=== PATIENT | male | born 1985 | race Caucasian/White ===

== ENCOUNTER 2019-06-29 14:23 | Emergency (ER) | payer MEDICARE, SELFPAY ==
[2019-06-29 14:35] VITALS: BP 134/75; PULSE 93; RESP 16; TEMP 36.8; O2SAT 99
--- NOTE | 2019-06-29 15:06 | ED.GENADUL_ITS ---
Discharge Plan Disposition Patient Disposition: HOME Condition: Stable Discharge Details Chief Complaint: Chest Pain Clinical Impression: Palpitation, Chest pressure Primary Care Provider: Nkechi Tolbert ED Provider: Alison Ibanez Home Meds and New Rx's Prescriptions: No Action esomeprazole magnesium [Nexium] 40 MG capsule,delayed release(DR/EC) 40 mg PO BID RF: 0 mercaptopurine 50 MG tablet 100 mg PO DAILY RF: 0 Stelara 90 mg/mL Syringe 90 mg SUBCUT .MONTHLY RF: 0 B-12 Compliance 1,000 mcg/mL Kit 1,000 mcg IM .MONTHLY RF: 0 Discharge Instructions Instructions: Palpitations (ED) Additional Instructions: Drink plenty of fluids. Rest activities as tolerated. Holter monitor for the next 48 hours as discussed. Follow-up promptly with your primary care doctor as discussed. For any alarming symptoms, worsening, increase in symptoms, persistent lightheaded nests, dizziness, feeling of syncope or chest pain have immediate reevaluation in the emergency room. Stand Alone Forms: Work Release Discharge Data Discharge Date/Time-TO BE ENTERED AT DEPARTURE: 06/29/19 18:57 Medical Decision Making <RIC Pham - Last Filed: 06/29/19 16:23> 15:15 This is a nontoxic-appearing 33-year-old male presenting to the emergency department with intermittent symptoms of palpitations, lightheadedness and chest pressure over the last 2 months. Most recent episode was roughly 24 hours ago. He does admit to central chest heaviness at this time. EKG shows sinus rhythm. Vital signs stable. He denies any dyspnea and has no tachycardia here therefore I do not suspect PE at this time. Labs drawn and ordered. 16:20 Patient's labs unremarkable. He remains in normal sinus rhythm on the monitor. Plan is to repeat troponin and discharge if negative. Will attempt to send home with Holter monitor. Case signed out to CLAIRE Ibanez at shift change. <RIC Jasmine - Last Filed: 06/30/19 00:47> Is a 33-year-old patient who presents for several months of palpitations. Please see previous providers note regarding patient's HPI. Patient was signed out pending a second troponin with a care plan in place to discharge the patient if troponin is negative. Patient has a low heart score per the previous provider. Patient has a Holter monitor in place which was put on in the ER this evening. I spoke with the patient who reports he has no persistent symptoms at this time. Reviewed current vital signs which are normal. Patient is requesting discharge home at this time. Pt prefer outpatient management as previously planned. Patient feels very appropriate being discharged home and prefers to follow-up with PCP. Patient second troponin ultimately negative and was discharged per the previous plan in place. HPI <RIC Pham - Last Filed: 06/29/19 16:23> General Date/Time Provider Initiated Documentation: 06/29/19 14:55 . HPI Narrative: Patient is a 33-year-old male with a significant history of Crohn's disease status post colectomy with ileostomy who presents to the emergency department with intermittent episodes of racing heart, facial flushing/tingling, bilateral hand tingling and chest pressure over the last 2 months. Patient states that he called his consultant teacher, Dr. Christianson, today and was instructed to come to the emergency department for evaluation. He denies any symptoms at this time. His last episode was roughly 24 hours ago. He does admit to some aching in his substernal area. No nausea or vomiting. He is a non-smoker. He denies any history of diabetes. No history of heart disease. No history of cancer. Related Data Home Medications Medication Instructions Recorded Confirmed esomeprazole magnesium [Nexium] 40 mg PO BID 08/21/17 06/29/19 mercaptopurine 100 mg PO DAILY 08/21/17 06/29/19 cyanocobalamin (vitamin B-12) 1,000 mcg IM .MONTHLY 06/29/19 06/29/19 [B-12 Compliance] ustekinumab [Stelara] 90 mg SUBCUT .MONTHLY 06/29/19 06/29/19 Allergies Allergy/AdvReac Type Severity Reaction Status Date / Time Penicillins Allergy Mild Hives Unverified 06/29/19 14:38 General Stated Complaint: Chest Pain MITUL: 2 Review of Systems <RIC Pham - Last Filed: 06/29/19 16:23> Constitutional Constitutional: Denies chills, Denies fatigue, Denies fever(s), Denies headache(s), Denies lethargy and Denies night sweats Eyes Eyes: Denies blurry vision, Denies change in vision, Denies decreased night vision, Denies diplopia, Denies eye discharge and Denies dry eyes ENT Ears, Nose, Mouth, and Throat: Denies headache(s) Cardiovascular Cardiovascular: Denies acrocyanosis, Reports chest pain, Denies syncope, Reports rapid heart rate, Denies edema, Denies irregular heart rhythm, Denies claudication, Denies leg edema, Reports lightheadedness, Reports palpitations, Denies dyspnea, Denies dyspnea on exertion, Denies orthopnea and Denies paroxysmal nocturnal dyspnea Respiratory Respiratory: Denies cough, Denies hemoptysis, Denies pain on inspiration, Denies dyspnea, Denies dyspnea on exertion and Denies wheezing Gastrointestinal Gastrointestinal: Denies abdominal pain, Denies diarrhea, Denies nausea and Denies vomiting Musculoskeletal Musculoskeletal: Denies arthralgias Integumentary/Breasts Skin/Breast: Denies rash Neurologic Neurologic: Denies syncope and Denies headache(s) Endocrine Endocrine: Denies fatigue and Reports palpitations Allergic/Immunologic Allergic/Immunologic: Denies wheezing PFSH <RIC Pham - Last Filed: 06/29/19 16:23> Social History Smoking/Tobacco Use Status: Never Drug use: Never Substance use type: does not use Do you feel safe in your relationship?: Yes Exam <RIC Pham - Last Filed: 06/29/19 16:23> Const General: cooperative, healthy appearing and comfortable Orientation: alert, awake and oriented x3 HENMT Head: normal to inspection and normocephalic Ears: hearing grossly normal bilaterally General nose exam: external nose normal Face and sinus: normal facial exam Mouth: oral mucosae normal Teeth and gingiva: dentition normal Throat: posterior oropharynx normal Eyes General: appearance normal, both eyes and all related structures Pupils: PERRL EOM: EOM intact bilaterally Neck Neck: normal visual inspection, full ROM and no lymphadenopathy Chest Chest: normal inspection of the chest and normal palpation of entire chest wall Resp Effort & Inspection: normal respiratory effort and able to speak in complete sentences Auscultation: clear to auscultation bilaterally Cardio Rate: regular rate Rhythm: regular rhythm Pulses: normal peripheral pulses Skin General skin exam: no rashes or lesions noted Neuro General: alert, awake and oriented x3 Cranial Nerves: CN's II-XI intact bilaterally Speech: speech normal Motor: muscle tone normal throughout Sensory Exam: no sensory deficits noted Extrem General: normal to inspection Course <RIC Pham - Last Filed: 06/29/19 16:23> Vital Signs Vital signs: Vital Signs Temperature 36.8 C 06/29/19 14:35 Pulse 93 H 06/29/19 14:35 Respiratory Rate 16 06/29/19 14:35 Blood Pressure 134/75 06/29/19 14:35 Pulse Oximetry 99 06/29/19 14:35 Temperature 36.8 C 06/29/19 14:35 Temperature Source Skin 06/29/19 14:35 Pulse 93 H 06/29/19 14:35 Respiratory Rate 16 06/29/19 14:35 Respiratory Effort Non-Labored 06/29/19 14:35 Blood Pressure 134/75 06/29/19 14:35 Blood Pressure Position Sitting 06/29/19 14:35 Pulse Oximetry 99 06/29/19 14:35 Oxygen Delivery Method Room Air 06/29/19 14:35 Oxygen Flow Rate 0 06/29/19 14:35 Pain Level 0 06/29/19 14:35 Sign Out <RIC Pham - Last Filed: 06/29/19 16:23> Sign Out Data: Sign Out Comment: Nontoxic-appearing 33-year-old male presenting to the emergency department with palpitations and lightheadedness with intermittent chest heaviness over the last 2 months. Low heart score. Initial labs unremarkable. Chest x-ray negative. EKG shows normal sinus rhythm. Repeat troponin pending. If negative can be discharged home. Discussed sending home with Holter monitoring Last updated by Roverto Daniel PA at 06/29/19 16:18
[2019-06-29 15:12] VITALS: RESP 15
[2019-06-29 15:14] LABS: Abs Immature Grans 0.01 k/cumm (0.0-0.09); Absolute Basophil Count 0.03 k/cumm (0.0-0.2); Absolute Eosinophil Count 0.13 k/cumm (0.0-0.7); Absolute Monocyte Count 0.23 k/cumm (0.11-0.7); Absolute Neutrophil Count 3.29 k/cumm (1.2-6.7); Basophils % 0.6; Eosinophils % 2.8; HCT 38.1 % (40.0-50.0); HGB 12.2 g/dL (13.5-17.5); Immature Grans % 0.2; Lymphocytes % 21.3; Mean Corpuscular Volume 87.4 fL (80-95); Mean Platelet Volume 8.8 fL (8.0-11.0); Monocytes % 4.9; Neutrophils % 70.2; Platelet Count 416 x1000/uL (130-400); RBC 4.36 m/cumm (4.50-6.00); RBC Distribution Width 15.3 % (11.8-14.1); White Blood Cell Count 4.69 k/cumm (4.4-10.8)
--- NOTE | 2019-06-29 15:21 | DI.RAD_ITS ---
EXAM: XR CHEST 2V PA LATERAL XR CHEST 2V PA LATERAL CLINICAL HISTORY: Palpitations, lightheadedness Palpitations, lightheadedness TECHNIQUE: 2D digital imaging was performed. COMPARISON: ABD FLAT UPRIGHT PA CHEST from 08/21/2017 FINDINGS: The heart is not enlarged. The lungs are clear and well expanded. No pleural effusion seen. Mediastin al contours appear intact. IMPRESSION: Normal chest
[2019-06-29 15:42] LABS: ALT 32 U/L (16-63); AST 20 U/L (15-37); Albumin 3.8 g/dL (3.4-5.0); Alkaline Phosphatase 58 U/L (46-116); Anion Gap 9.8 mmol/L (3-11); BUN 5 mg/dL (7-18); Bilirubin, Total 0.4 mg/dL (0.2-1.0); CO2 28.2 mmol/L (21.0-32.0); CREATININE 0.78 mg/dL (0.70-1.30); Calcium 9.2 mg/dL (8.5-10.1); Chloride 106 mmol/L (98-107); Glucose 100 mg/dL (74-106); Magnesium 2.1 mg/dL (1.8-2.4); Sodium 144 mmol/L (136-145); Total Protein 7.8 g/dL (6.4-8.2)
[2019-06-29 15:49] LABS: Troponin I < 0.05 ng/Ml (<0.06)
[2019-06-29 16:14] LABS: TSH (W/Ref FT4) 2.08 uIU/mL (0.36-3.74)
[2019-06-29 18:16] LABS: Troponin I < 0.05 ng/Ml (<0.06)
[2019-06-29 18:28] VITALS: BP 118/68; PULSE 77; RESP 16; TEMP 36.8; O2SAT 99
--- NOTE | 2019-06-29 18:30 | ED.GENADUL_ITS ---
Discharge Plan Disposition Patient Disposition: HOME Condition: Stable Discharge Details Chief Complaint: Chest Pain Clinical Impression: Palpitation, Chest pressure Primary Care Provider: Nkechi Tolbert ED Provider: Alison Ibanez Home Meds and New Rx's Prescriptions: No Action esomeprazole magnesium [Nexium] 40 MG capsule,delayed release(DR/EC) 40 mg PO BID RF: 0 mercaptopurine 50 MG tablet 100 mg PO DAILY RF: 0 Stelara 90 mg/mL Syringe 90 mg SUBCUT .MONTHLY RF: 0 B-12 Compliance 1,000 mcg/mL Kit 1,000 mcg IM .MONTHLY RF: 0 Discharge Instructions Instructions: Palpitations (ED) Additional Instructions: Drink plenty of fluids. Rest activities as tolerated. Holter monitor for the next 48 hours as discussed. Follow-up promptly with your primary care doctor as discussed. For any alarming symptoms, worsening, increase in symptoms, persistent lightheaded nests, dizziness, feeling of syncope or chest pain have immediate reevaluation in the emergency room. Stand Alone Forms: Work Release Medical Decision Making Is a 33-year-old patient who was signed out pending a repeat troponin. Please see previous providers note regarding HPI and details of patient's complaints. Patient is 33 years old with a low heart score who does not smoke who presents for 2 months of palpitations associated with flushing. Patient's labs evaluated as well as EKG. Patient is feeling significantly improved at this time. Holter monitor is in place and has plan of keeping in place for the next 48 hours. Patient's vital signs are normal. Patient has no symptoms at this time. Has been drinking without difficulty. Patient reports understanding with plan of care. Work note provided feels uncomfortable reports he is hungry and is requesting discharge home at this time. Patient was offered admission to the hospital if he feels he needs more significant evaluation however he does not feel he needs or requires admission to the hospital at this time but does feel comfortable with outpatient follow-up with his PCP closely. Patient will call his PCP tomorrow. The patient was stable and requested discharge. Prior to discharge, my usual and customary return precautions were reviewed with the prachi ent - this included follow-up instructions and reasons to return to the Emergency Department if conditions worsens, does not improve as expected, or other new concerns arise. HPI General Date/Time Provider Initiated Documentation: 06/29/19 14:55 . Related Data Home Medications Medication Instructions Recorded Confirmed esomeprazole magnesium [Nexium] 40 mg PO BID 08/21/17 06/29/19 mercaptopurine 100 mg PO DAILY 08/21/17 06/29/19 cyanocobalamin (vitamin B-12) 1,000 mcg IM .MONTHLY 06/29/19 06/29/19 [B-12 Compliance] ustekinumab [Stelara] 90 mg SUBCUT .MONTHLY 06/29/19 06/29/19 Allergies Allergy/AdvReac Type Severity Reaction Status Date / Time Penicillins Allergy Mild Hives Unverified 06/29/19 14:38 General Stated Complaint: Chest Pain MITUL: 2 PFSH Social History Smoking/Tobacco Use Status: Never Drug use: Never Substance use type: does not use Do you feel safe in your relationship?: Yes Course Vital Signs Vital signs: Vital Signs Temperature 36.8 C 06/29/19 14:35 Pulse 93 H 06/29/19 14:35 Respiratory Rate 16 06/29/19 14:35 Blood Pressure 134/75 06/29/19 14:35 Pulse Oximetry 99 06/29/19 14:35 Temperature 36.8 C 06/29/19 14:35 Temperature Source Skin 06/29/19 14:35 Pulse 93 H 06/29/19 14:35 Respiratory Rate 15 06/29/19 15:12 Respiratory Effort 06/29/19 15:12 Respiratory Depth Normal 06/29/19 15:12 Respiratory Pattern Normal 06/29/19 15:12 Blood Pressure 134/75 06/29/19 14:35 Blood Pressure Position Sitting 06/29/19 14:35 Pulse Oximetry 99 06/29/19 14:35 Oxygen Delivery Method Room Air 06/29/19 14:35 Oxygen Flow Rate 0 06/29/19 14:35 Pain Level 0 06/29/19 14:35 Lab/Test Results Lab/Test Results: Laboratory Tests Range/Units 06/29/19 06/29/19 06/29/19 15:06 15:06 15:06 WBC (4.4-10.8) k/cumm 4.69 RBC (4.50-6.00) m/cumm 4.36 L Hgb (13.5-17.5) g/dL 12.2 L Hct (40.0-50.0) % 38.1 L MCV (80-95) fL 87.4 MCH (27.0-33.0) pg 28.0 MCHC (32.0-36.0) g/dL 32.0 RDW (11.8-14.1) % 15.3 H Plt Count (130-400) x1000/uL 416 H MPV (8.0-11.0) fL 8.8 Immature Gran % 0.2 Neutrophils % 70.2 Lymphocytes % 21.3 Monocytes % 4.9 Eosinophils % 2.8 Basophils % 0.6 Absolute Neutrophils (1.2-6.7) k/cumm 3.29 Absolute Lymphocytes (1.2-3.4) k/cumm 1.00 L Absolute Monocytes (0.11-0.7) k/cumm 0.23 Absolute Eosinophils (0.0-0.7) k/cumm 0.13 Absolute Basophils (0.0-0.2) k/cumm 0.03 Sodium (136-145) mmol/L 144 Potassium (3.5-5.1) mmol/L 4.0 Chloride (98-107) mmol/L 106 Carbon Dioxide (21.0-32.0) mmol/L 28.2 Anion Gap (3-11) mmol/L 9.8 BUN (7-18) mg/dL 5 L Creatinine (0.70-1.30) mg/dL 0.78 Estimated GFR/1.73 m2 (mL/min/1.73m2) >= 60.00 Glucose (74-106) mg/dL 100 Calcium (8.5-10.1) mg/dL 9.2 Magnesium (1.8-2.4) mg/dL 2.1 Total Bilirubin (0.2-1.0) mg/dL 0.4 AST (15-37) U/L 20 ALT (16-63) U/L 32 Alkaline Phosphatase (46-116) U/L 58 Troponin I (<0.06) ng/Ml < 0.05 Total Protein (6.4-8.2) g/dL 7.8 Albumin (3.4-5.0) g/dL 3.8 TSH (0.36-3.74) uIU/mL 2.08 Range/Units 12/19/19 12/19/19 15:10 17:15 WBC (4.4-10.8) k/cumm RBC (4.50-6.00) m/cumm Hgb (13.5-17.5) g/dL Hct (40.0-50.0) % MCV (80-95) fL MCH (27.0-33.0) pg MCHC (32.0-36.0) g/dL RDW (11.8-14.1) % Plt Count (130-400) x1000/uL MPV (8.0-11.0) fL Immature Gran % Neutrophils % Lymphocytes % Monocytes % Eosinophils % Basophils % Absolute Neutrophils (1.2-6.7) k/cumm Absolute Lymphocytes (1.2-3.4) k/cumm Absolute Monocytes (0.11-0.7) k/cumm Absolute Eosinophils (0.0-0.7) k/cumm Absolute Basophils (0.0-0.2) k/cumm Sodium (136-145) mmol/L Potassium (3.5-5.1) mmol/L Chloride (98-107) mmol/L Carbon Dioxide (21.0-32.0) mmol/L Anion Gap (3-11) mmol/L BUN (7-18) mg/dL Creatinine (0.70-1.30) mg/dL Estimated GFR/1.73 m2 (mL/min/1.73m2) Glucose (74-106) mg/dL Calcium (8.5-10.1) mg/dL Magnesium (1.8-2.4) mg/dL Total Bilirubin (0.2-1.0) mg/dL AST (15-37) U/L ALT (16-63) U/L Alkaline Phosphatase (46-116) U/L Troponin I (<0.06) ng/Ml Cancelled < 0.05 Total Protein (6.4-8.2) g/dL Albumin (3.4-5.0) g/dL TSH (0.36-3.74) uIU/mL Sign Out Sign Out Data: Sign Out Comment: Nontoxic-appearing 33-year-old male presenting to the emergency department with palpitations and lightheadedness with intermittent chest heaviness over the last 2 months. Low heart score. Initial labs unremarkable. Chest x-ray negative. EKG shows normal sinus rhythm. Repeat troponin pending. If negative can be discharged home. Discussed sending home with Holter monitoring Last updated by Roverto Daniel PA at 06/29/19 16:18
== END 2019-06-29 18:57 | disposition home or self-care (01) ==
PROVIDERS: Physician Assistant; Emergency Provider Physician Assistant; PCP Internal Medicine
DX: R00.2 Palpitations (principal); R07.89 Other chest pain; R42 Dizziness and giddiness
CPT/HCPCS: 36415; 80053; 93005; 99285; 71046; 83735; 84443; 84484; 85025; 93010; 93225; 99284

== ENCOUNTER 2019-07-02 12:19 | Outpatient (CLI) | payer MEDICARE, SELFPAY ==
--- NOTE | 2019-07-06 08:51 | W.HOLTRPT ---
Date of service: 07/06/19 Time of Service: 08:51 Holter Monitor Report Holter Monitor Note: The patient was monitored for 2 days . Rhythm throughout was sinus. Average heart rate was 87/minute (range 56 to 152) There were no dysrhythmias recorded
== END 2019-07-02 12:39 ==
PROVIDERS: PCP Internal Medicine; Visit Provider Physician Assistant
DX: R00.2 Palpitations (principal); R07.89 Other chest pain; R42 Dizziness and giddiness
CPT/HCPCS: 93226

== ENCOUNTER 2019-07-06 08:51 | Outpatient (CLI) | payer MEDICARE, SELFPAY | END 2019-07-06 09:11 | PROVIDERS: PCP Internal Medicine; Referring Provider Internal Medicine; Visit Provider Internal Medicine Cardiovascular Disease | DX: R00.2 Palpitations (principal); R07.89 Other chest pain; R42 Dizziness and giddiness | CPT/HCPCS: 93227 ==

== ENCOUNTER 2021-06-09 03:16 | Outpatient (CLI) | payer MEDICARE, SELFPAY ==
[2021-06-09 17:12] LABS: Abs Immature Grans 0.01 10^3/uL (0.0-0.06); Absolute Basophil Count 0.03 10^3/uL (0.0-0.2); Absolute Lymphocyte Count 1.15 10^3/uL (1.2-3.4); Absolute Neutrophil Count 2.86 10^3/uL (1.2-6.7); Basophils % 0.7; Eosinophils % 4.4; HCT 33.5 % (40.0-50.0); HGB 9.9 g/dL (13.5-17.5); Immature Grans % 0.2; Lymphocytes % 25.3; MCH 23.2 pg (27.0-33.0); MCHC 29.6 % (32.0-36.0); MCV 78.5 fL (80-95); MPV 8.8 fL (8.0-11.0); Monocytes % 6.6; Neutrophils % 62.8; Nucleated RBC 0 %; Platelet Count 431 10^3/uL (130-400); RBC 4.27 10^6/uL (4.36-5.78); RDW 17.1 % (11.8-14.1); RDW-SD 48.5 fL; WBC 4.55 10^3/uL (4.4-10.8)
[2021-06-09 18:02] LABS: ALT 37 U/L (16-63); AST 16 U/L (15-37); Albumin 3.8 g/dL (3.4-5.0); Alkaline Phosphatase 59 U/L (46-116); BUN 8 mg/dL (7-18); Bilirubin, Total 0.4 mg/dL (0.2-1.0); C-Reactive Protein 0.18 mg/dL (0.0-0.3); CREATININE 0.9 mg/dL (0.70-1.30); Calcium 8.9 mg/dL (8.5-10.1); Chloride 106 mmol/L (98-107); Glucose 90 mg/dL (74-106); Potassium 4.4 mmol/L (3.5-5.1); Sodium 141 mmol/L (136-145); Total Protein 7.7 g/dL (6.4-8.2)
== END 2021-06-09 03:17 | disposition home or self-care (01) ==
LOC: LBO 03:17
PROVIDERS: PCP Internal Medicine; Visit Provider Internal Medicine Gastroenterology
DX: K50.814 Crohn's disease of both small and large intestine with abscess (principal)
CPT/HCPCS: 36415; 80053; 85025; 86140

== ENCOUNTER 2021-07-31 02:07 | Outpatient (CLI) | payer MEDICARE, OTHER, SELFPAY ==
[2021-07-31 12:31] LABS: Abs Immature Grans 0.01 10^3/uL (0.0-0.06); Absolute Basophil Count 0.03 10^3/uL (0.0-0.2); Absolute Lymphocyte Count 1.08 10^3/uL (1.2-3.4); Absolute Monocyte Count 0.32 10^3/uL (0.1-0.8); Basophils % 0.6; Eosinophils % 2.1; HCT 35.5 % (40.0-50.0); HGB 10.1 g/dL (13.5-17.5); Immature Grans % 0.2; Lymphocytes % 22.8; MCH 22.5 pg (27.0-33.0); MCHC 28.5 % (32.0-36.0); MCV 79.1 fL (80-95); MPV 8.5 fL (8.0-11.0); Monocytes % 6.8; Neutrophils % 67.5; Nucleated RBC 0 %; Platelet Count 463 10^3/uL (130-400); RBC 4.49 10^6/uL (4.36-5.78); RDW-SD 47.8 fL; WBC 4.74 10^3/uL (4.4-10.8)
[2021-07-31 13:17] LABS: Iron 18 ug/dL (65-175); Total Iron Binding Capacity 434 ug/dL (250-450); Transferrin Sat 4 % (20-55)
[2021-07-31 13:45] LABS: Folate 9.1 ng/mL (8.6-20.0); Vitamin B12 351 pg/mL (193-986)
== END 2021-07-31 02:08 | disposition home or self-care (01) ==
LOC: LBO 02:07
PROVIDERS: PCP Internal Medicine; Visit Provider Internal Medicine Gastroenterology
DX: D50.0 Iron deficiency anemia secondary to blood loss (chronic) (principal); K52.89 Other specified noninfective gastroenteritis and colitis; K50.80 Crohn's disease of both small and large intestine without complications
CPT/HCPCS: 36415; 82607; 82746; 83540; 83550; 85025

== ENCOUNTER 2022-02-27 09:24 | Emergency (ER) | payer OTHER, SELFPAY ==
[2022-02-27 09:28] VITALS: BP 138/69; PULSE 95; TEMP 36.8; O2SAT 94
--- NOTE | 2022-02-27 10:00 | DI.CT_ITS ---
Exam(s) CT ABDOMEN PELVIS W EXAM: CT ABDOMEN PELVIS W CLINICAL HISTORY: Perianal abscess with history of Crohn's. TECHNIQUE: Imaging Protocol: Axial computed tomography images with coronal and sagittal reformatted images were created and reviewed CONTRAST MATERIAL: Intravenous: Omnipaque 350 Contrast volume:100 ml Oral: no COMPARISON: No exams were available for comparison FINDINGS: ABDOMEN: Lung Bases: Normal where visualized. Liver: Normal density. No measurable mass. Gallbladder and biliary tract: Single large gallstone. No gallbladder wall thickening. No biliary d ilation. Pancreas: Normal density, no abnormal calcifications or inflammatory process. Spleen: Normal. Kidneys: Normal size, contour and axis. No radiodense stones or obstructive uropathy. No masses seen. Left renal cyst. Adrenal glands: No masses seen. Abdominal Aorta: Abdominal portion non-dilated. PELVIS: Bladder: No gross wall thickening. No calculi.No focal mass. Bowel: Status post colectomy right-sided ileostomy. Small segment of rectosigmoid is in place and vitaliy ears unremarkable. The majority of the small bowel is decompressed. There is a focal area of dilatat ion just proximal to the ostomy. Bowel proximal to this level decompressed. Mild dilatation left lo wer quadrant bowel. No wall thickening or stranding in the surrounding fat.. . Peritoneal cavity: No ascites, collection or mesenteric inflammatory response. Bones: Within normal limits for age. Reproductive organs: Within normal limits. Lymph nodes: Unremarkable. Soft tissues: There is thickening of the right gluteal fold and minimal edema in the adjacent fat. N o drainable abscess or fluid collection. Impression: Right gluteal skin thickening without visible abscess. Colectomy and right lower quadrant ileostomy. No evidence of active inflammation. Single large gallstone. No evidence of cholecystitis. Results of this exam have been verbally communicated with the emergency department provider. RADIATION DOSE DELIVERED: 1,349.94mGy.cm Total DLP DATA REPOSITORY: All CT scans at this facility are submitted to the National Radiology Data Registry (NRDR) Dose Index Registry (DIR) with the [employer] ([employer]). RADIATION OPTIMIZATION: All CT scans at this facility use at least one of these dose optimization te chniques: automated exposure control; mA and/or kV adjustment per patient size (includes targeted exa ms where dose is matched to clinical indication); or iterative reconstruction.
--- NOTE | 2022-02-27 10:21 | ED.GENADUL_ITS ---
Discharge Plan Disposition Patient Disposition: HOME Discharge Details Clinical Impression: Cellulitis of buttock Primary Care Provider: Nkechi Tolbert ED Provider: John Watson Home Meds and New Rx's Prescriptions: New ciprofloxacin HCl 500 mg tablet 500 mg PO Q12H 7 Days Qty: 14 0RF metronidazole 500 mg tablet 500 mg PO TID 7 Days Qty: 21 0RF Continued esomeprazole magnesium [Nexium] 40 MG capsule,delayed release(DR/EC) 40 mg PO BID mercaptopurine 50 MG tablet 100 mg PO DAILY Stelara 90 mg/mL Syringe 90 mg SUBCUT .MONTHLY B-12 Compliance 1,000 mcg/mL Kit 1,000 mcg IM .MONTHLY Discharge Instructions Instructions: Cellulitis (ED) Additional Instructions: Continue to take your antibiotics as prescribed along with 2 mg daily medication s. If you have any significant new or worsening symptoms feel free to return to the emergency department for reassessment otherwise please follow-up with [facility] gastroenterology next week for recheck of your symptoms and possible further treatment as needed. Referrals: [facility] [Outside] - 1 week Discharge Data Discharge Date/Time-TO BE ENTERED AT DEPARTURE: 02/27/22 14:01 Medical Decision Making Patient presenting to the emergency department for chief complaint of buttock abscess. Patient has significant history of Crohn's with colectomy. Patient reports previous history of buttock abscesses that required significant surgery and ended up in colectomy. Patient states that this started as a small area of irritation to the right buttock near the anal opening and has progressively worsened over the past 2 weeks. Patient denies any drainage. Patient denies any systemic symptoms. Physical exam shows significant erythema swelling induration and tenderness surrounding the right aspect of the rectal opening and the surrounding buttock tissue. No specific head of the abscess was noted. Abdominal exam is otherwise unremarkable and colostomy appears normal and overall appearance with patient reporting typical drainage. Patient does state that every once a while he does pass some slight mucus through the rectal opening but does not have any standard bowel movement. We will plan on checking labs and CT imaging due to high risk of fistulization given history. Patient denies any need for pain medication at time pending results. Reviewed CBC and patient has chronic anemia without significant change, unremarkable CMP. CT scan shows inflammatory skin changes on the right buttock but no obvious drainable abscess. Consulted with gastroenterology at [facility]. After discussion with specialist plan to start patient on Cipro Flagyl with close follow-up at [facility] for possible need of IR or colorectal surgery given patient's history. Patient states clear understanding of follow-up. Also did discuss with patient return and follow-up precautions for any new or significant worsening of symptoms. After discussion of diagnosis and plan of care patient has no further needs, questions, or concerns and states clear understanding to return to the emergency department for any worsening symptoms. This documentation was generated using [employer] system, please disregard any oddities of phrase or misspellings. Medical Records Medical records reviewed: Yes I reviewed the patient's medical records. Imaging Data Radiologic Study: Attestation: I personally reviewed and interpreted this imaging study as follows: Imaging: CT Scan Radiologist's impression: FINDINGS: ABDOMEN: Lung Bases: Normal where visualized. Liver: Normal density. No measurable mass. Gallbladder and biliary tract: Single large gallstone. No gallbladder wall thickening. No biliary dilation. Pancreas: Normal density, no abnormal calcifications or inflammatory process. Spleen: Normal. Kidneys: Normal size, contour and axis. No radiodense stones or obstructive uropathy. No masses seen. Left renal cyst. Adrenal glands: No masses seen. Abdominal Aorta: Abdominal portion non-dilated. PELVIS: Bladder: No gross wall thickening. No calculi.No focal mass. Bowel: Status post colectomy right-sided ileostomy. Small segment of rectosigmoid is in place and appears unremarkable. The majority of the small bowel is decompressed. There is a focal area of dilatation just proximal to the ostomy. Bowel proximal to this level decompressed. Mild dilatation left lower quadrant bowel. No wall thickening or stranding in the surrounding fat.. . Peritoneal cavity: No ascites, collection or mesenteric inflammatory response. Bones: Within normal limits for age. Reproductive organs: Within normal limits. Lymph nodes: Unremarkable. Soft tissues: There is thickening of the right gluteal fold and minimal edema in the adjacent fat. No drainable abscess or fluid collection. Impression: Right gluteal skin thickening without visible abscess. Colectomy and right lower quadrant ileostomy. No evidence of active inflammation. Single large gallstone. No evidence of cholecystitis. Results of this exam have been verbally communicated with the emergency depar tment provider. Lab Data Lab results reviewed: Yes I reviewed the patient's lab results. HPI General Mode of arrival: ambulatory . Date/Time Provider Initiated Documentation: 02/27/22 09:26 . Limitations to Documentation: no limitations . Information obtained by: patient . History of Present Illness 36 year old M presents to the emergency department with the chief complaint of Buttock abscess, described as mild, with intensity rated at 4. Quality is described as aching, and is localized to the buttocks. Patient reports no radiation. Patient started experiencing this week(s) (2) and it has been constant. No relieving factors improve symptom(s), No exacerbating factors reported . Patient notes no other symptoms.. Patient did receive the following treatments prior to arrival, none Related Data Home Medications Medication Instructions Recorded Confirmed esomeprazole magnesium 40 mg 40 mg PO BID 08/21/17 02/27/22 capsule,delayed release (Nexium) mercaptopurine 50 mg tablet 100 mg PO DAILY 08/21/17 02/27/22 cyanocobalamin (vitamin B-12) 1,000 mcg IM .MONTHLY 06/29/19 06/29/19 1,000 mcg/mL injection kit (B-12 Compliance) ustekinumab 90 mg/mL subcutaneous 90 mg subcut .MONTHLY 06/29/19 02/27/22 syringe (Stelara) ciprofloxacin HCl 500 mg tablet 500 mg PO Q12H 7 days #14 tabs 02/27/22 metronidazole 500 mg tablet 500 mg PO TID 7 days #21 tabs 02/27/22 Previous Rx's Medication Instructions Recorded ciprofloxacin HCl 500 mg tablet 500 mg PO Q12H 7 days #14 tabs 02/27/22 metronidazole 500 mg tablet 500 mg PO TID 7 days #21 tabs 02/27/22 Allergies Allergy/AdvReac Type Severity Reaction Status Date / Time Penicillins Allergy Mild Hives Unverified 02/27/22 09:30 General Stated Complaint: RashLesion MITUL: 3 Review of Systems Narrative: 8 systems reviewed and unremarkable except what is marked below. Gastrointestinal Gastrointestinal: Reports as per HPI, Denies abdominal pain and Denies excessive flatus Integumentary/Breasts Skin/Breast: Reports as per HPI PFSH All Active Problems (Updated 02/27/22 @ 13:52 by John Watson NP) Cellulitis of buttock (Acute) Colostomy in place (Chronic) Crohn's disease (Chronic) Surgical History (Updated 02/27/22 @ 10:23 by John Watson NP) S/P colectomy Social History Smoking/Tobacco Use Status: Never Smoking risk assessment performed?: Yes Drug use: Never Substance use type: does not use Do you feel safe at home: Yes Do you feel safe in your relationship?: Yes Exam Const General: cooperative Orientation: alert, awake and oriented x3 Resp Effort & Inspection: normal respiratory effort and able to speak in complete sentences Cardio Rate: regular rate Rhythm: regular rhythm Pulses: normal peripheral pulses GI Palpation: soft, no hepatosplenomegaly, not firm, no guarding, no masses, no pulsatile masses, not rigid, no splenomegaly and tender Auscultation: normal bowel sounds Rectal Exam: tenderness and visual inspection abnormal other (Right perianal and buttock induration with tenderness and erythema) Neuro General: patient alert, patient awake, patient oriented x3, gait normal and moves all extremities Course Vital Signs Vital signs: Vital Signs Temperature 36.8 C 02/27/22 09:28 Pulse 95 H 02/27/22 09:28 Blood Pressure 138/69 02/27/22 09:28 Pulse Oximetry 94 02/27/22 09:28 Temperature 36.8 C 02/27/22 09:28 Pulse 95 H 02/27/22 09:28 Respiratory Effort Non-Labored 02/27/22 09:32 Blood Pressure 138/69 02/27/22 09:28 Blood Pressure Position Sitting 02/27/22 09:28 Pulse Oximetry 94 02/27/22 09:28 Oxygen Delivery Method Room Air 02/27/22 09:28 Oxygen Flow Rate 0 02/27/22 09:28 PAWSS Have you Been Recently Intoxicated or Drunk Within the Last 30 days?: No Have you Ever Experienced Previous Episodes of Alcohol Withdrawal?: No Have you ever Experienced Withdrawal Seizures?: No Have you ever Experienced Delirium Tremens(DT)s?: No Have you ever undergone Alcohol Rehabilitation Treatment (i.e, inpt ot outpatient treatment programs)?: No Have you ever Experienced Blackouts?: No Have you ever Combined Alcohol with other Downers within the last 90 days?: No Have you ever Combined Alcohol with any other Substance of Abuse during the last 90 days?: No Positive Blood Alcohol level on Presentation? [PCS.BAL]: No Evidence of Increased Autonomic Activity (i.e. HR>120, tremor, sweating, agitation, nausea)?: No Result: 0
[2022-02-27 10:26] LABS: Abs Immature Grans 0.02 10^3/uL (0.0-0.06); Absolute Basophil Count 0.03 10^3/uL (0.0-0.2); Absolute Eosinophil Count 0.14 10^3/uL (0.0-0.7); Absolute Lymphocyte Count 1.03 10^3/uL (1.2-3.4); Absolute Monocyte Count 0.39 10^3/uL (0.1-0.8); Absolute Neutrophil Count 5.11 10^3/uL (1.2-6.7); Basophils % 0.4; Eosinophils % 2.1; HCT 39.3 % (40.0-50.0); HGB 12.2 g/dL (13.5-17.5); Immature Grans % 0.3; Lymphocytes % 15.3; MCH 24.5 pg (27.0-33.0); MCV 79 fL (80-95); MPV 8.9 fL (8.0-11.0); Monocytes % 5.8; Neutrophils % 76.1; Platelet Count 417 10^3/uL (130-400); RBC 4.98 10^6/uL (4.36-5.78); RDW 16.3 % (11.8-14.1); RDW-SD 46.6 fL; WBC 6.72 10^3/uL (4.4-10.8)
[2022-02-27 10:47] LABS: ALT 31 U/L (16-63); AST 15 U/L (15-37); Albumin 3.6 g/dL (3.4-5.0); Alkaline Phosphatase 74 U/L (46-116); Anion Gap 10.3 mmol/L (3-11); BUN 11 mg/dL (7-18); Bilirubin, Total 0.4 mg/dL (0.2-1.0); CO2 25.7 mmol/L (21.0-32.0); CREATININE 0.9 mg/dL (0.70-1.30); Chloride 104 mmol/L (98-107); Glucose 93 mg/dL (74-106); Potassium 3.7 mmol/L (3.5-5.1); Sodium 140 mmol/L (136-145); Total Protein 8.4 g/dL (6.4-8.2)
[2022-02-27] MEDS: Omnipaque 350 MG/ML 100 ML BTL IJ ×2 (11:08→11:09)
[2022-02-27] MEDS: Normal Saline Flush 10 ML SYR IVP (11:09)
[2022-02-27 11:10] VITALS: BP 129/68; PULSE 75; RESP 14; O2SAT 98
[2022-02-27 14:02] VITALS: BP 111/65; PULSE 65; RESP 16; O2SAT 96
== END 2022-02-27 14:01 | disposition home or self-care (01) ==
PROVIDERS: Emergency Provider Nurse Practitioner Family; PCP Internal Medicine
DX: L03.317 Cellulitis of buttock (principal); D64.9 Anemia, unspecified; Z90.49 Acquired absence of other specified parts of digestive tract; Z93.3 Colostomy status
CPT/HCPCS: 36415; 80053; 99285; 74177; 85025; 99284; J3490

== ENCOUNTER 2023-01-25 08:21 | Emergency (ER) | payer OTHER, SELFPAY ==
[2023-01-25] VITALS (37 sets, daily range): BP systolic 109–125; BP diastolic 63–84; PULSE 53–97; RESP 10–24; TEMP 36.8; O2SAT 93–99
--- NOTE | 2023-01-25 08:15 | RT.EKG_ITS ---
APPROVED REPORT Exam: Resting ECG Reason for Exam: palptations Patient Location: E HR:70 bpm ECG Measurements Heart Rate 70 AXIS UT 143 P 19 QRSd 95 QRS -7 QT 380 T 45 QTc 409 Conclusion Sinus rhythm...normal P axis, V-rate 60- 99 Physician: no stemi, but elevation is present in V1-2 which is less than 1mm. Appears new compared to prior ekg. no recip depressions.
--- NOTE | 2023-01-25 08:45 | DI.RAD_ITS ---
Exam(s) XR CHEST 2V PA LATERAL EXAM: XR CHEST 2V PA LATERAL CLINICAL HISTORY: palpitations TECHNIQUE: 2D digital imaging was performed. COMPARISON: CR XR CHEST 2V PA LATERAL from 06/29/2019 FINDINGS: HEART: Normal size. Aorta: Not dilated. PULMONARY VASCULATURE: Normal. LUNGS: Clear. PLEURAL SPACE: No pleural effusion or pneumothorax. BONE:Unremarkable for age. IMPRESSION: No acute abnormality. DATA REPOSITORY: RADIATION DOSE DELIVERED:
--- NOTE | 2023-01-25 08:48 | ED.GENADUL_ITS ---
Discharge Plan Disposition Patient Disposition: Home Condition: Good Discharge Details Clinical Impression: Heart palpitations, PVC's (premature ventricular contractions) Primary Care Provider: Nkechi Tolbert ED Provider: Padmaja Freeman Home Meds and New Rx's Prescriptions: Continued esomeprazole magnesium [Nexium] 40 MG capsule,delayed release(DR/EC) 40 mg PO BID mercaptopurine 50 MG tablet 100 mg PO DAILY Stelara 90 mg/mL Syringe 90 mg SUBCUT .MONTHLY B-12 Compliance 1,000 mcg/mL Kit 1,000 mcg IM .MONTHLY metronidazole 500 mg tablet 500 mg PO TID 7 Days Qty: 21 0RF No Action ciprofloxacin HCl 500 mg tablet 500 mg PO Q12H 7 Days Qty: 14 0RF Discharge Instructions Instructions: Heart Palpitations (ED) Additional Instructions: As we discussed, your labs and chest x-ray are reassuring here today. I am concerned that some of this may be associated with dehydration given your ostomy output and hydration status over the weekend. Please continue to encourage hydration. Please continue with journaling symptoms and what may be a trigger. Please follow-up with primary care in 1 week for reevaluation. If you develop any new or worsening symptoms please seek care urgently once again. Referrals: Nkechi Tolbert [Primary Care Provider] - Discharge Data Discharge Date/Time-TO BE ENTERED AT DEPARTURE: 01/25/23 12:51 Medical Decision Making Patient is a pleasant 37-year-old gentleman with past medical history pertinent for Crohn's disease, presenting today with recurrent palpitations. Patient's been seen here in the past for similar. He denies any chest pain with this episode. States that he often has PVCs and is very symptomatic with these, can wake him from sleep. He presents this morning because he feels that they have been more frequent than typical. States that prior to arrival he was having these about once a minute. During my time in the room with the patient, which was probably over 10 minutes, the patient did have 1 PVC. Does not have any history of MS. He does report that he had did some vigorous exercise but 2 days ago and feels like he may become more dehydrated yesterday. States that his ostomy output has been slightly diminished. Reports that this morning when his palpitations woke him, he did feel slightly short of breath but denies any currently. No recent travel. No history of DVT. Patient's not anticoagulated. Denies any cough, cold, fever/chills. No chest pain or pain that radiates into his back. Denies any lightheadedness. On exam, patient appears nontoxic. He is resting comfortably. Hemodynamically stable. Lungs are clear in all mo, normal cardiac exam with no murmurs rubs or gallops appreciated. 2+ distal pulses in all extremities. No calf tenderness or lower extremity swelling. Abdomen is benign. Ostomy on the right side. Patient does have history of PVCs which do seem to be causing his symptoms today. Given change in ostomy output, I did consider potential dehydration will give the patient some IV fluids. We will also have him hydrate orally. We will obtain CMP to evaluate for any electrolyte abnormalities that may accompany this. Low suspicion for ACS although we will obtain an troponin underwent caution. ECG was obtained and reviewed by Dr. Irene. He did note slight change in lead , V2 compared to previous ECG this is not over 1 mm no reciprocal changes. No right-sided strain. PERC and Wells negative. No sxs of dissection, infectious etiology. Labs reviewed. White count is slightly low at 3.65 hematocrit within normal limits. Hemoglobin slightly low at 12.7 which is baseline for the patient. Platelet count is slightly elevated 452 which is baseline for the patient. His CMP without significant abnormality. Troponin within normal limits. HEART: Normal size.? Aorta: Not dilated. PULMONARY VASCULATURE: Normal. LUNGS: Clear. ? PLEURAL SPACE: No pleural effusion or pneumothorax. BONE:Unremarkable for age.? IMPRESSION: No acute abnormality Repeat troponin remains within normal limits. Thyroid within normal limits. PVCs have subsided. At no time did he have any runs of PVCs. No runs of vtach. Adrien is feeling improved. Discussed holter monitor, he shipley had this in the past but was not having symptoms during the duration of the device. Would prefer long lasting, will refer to PCP to discuss further. He sound sto have been dehydated and has PVCs at baseline. I encouraged that he begin journaling his symptoms. He also links with belching so this may be associated with his chronic GI issues although no acute flair evident at this time. Encouraged hdyration, he is eating/drining in the department. Will f/u with PCP in one week. Return precautions discussed. All of his questions and concerns were addressed, he is in agreement wit [facility] plan. HPI General Date/Time Provider Initiated Documentation: 01/25/23 08:32 . Limitations to Documentation: no limitations . Information obtained by: patient, RN notes reviewed and old records reviewed . History of Present Illness 37 year old M presents to the emergency department with the chief complaint of palpitations, described as moderate and similar to prior episodes, Quality is described as other (no pain), and is localized to the chest. Patient reports no radiation. Patient started experiencing this hour(s) (0400) and it has been intermittent. No relieving factors improve symptom(s), No exacerbating factors reported (may be associated with dehydration but light connection by patient) . Patient notes no other symptoms.; denies chest pain, cough, diaphoresis, malaise, nausea/vomiting, shortness of breath, syncope and weakness. Patient did receive the following treatments prior to arrival, none Related Data Home Medications Medication Instructions Recorded Confirmed esomeprazole magnesium 40 mg 40 mg PO BID 08/21/17 01/25/23 capsule,delayed release (Nexium) mercaptopurine 50 mg tablet 100 mg PO DAILY 08/21/17 01/25/23 cyanocobalamin (vitamin B-12) 1,000 mcg IM .MONTHLY 06/29/19 01/25/23 1,000 mcg/mL injection kit (B-12 Compliance) ustekinumab 90 mg/mL subcutaneous 90 mg subcut .MONTHLY 06/29/19 01/25/23 syringe (Stelara) ciprofloxacin HCl 500 mg tablet 500 mg PO Q12H 7 days #14 tabs 02/27/22 01/25/23 metronidazole 500 mg tablet 500 mg PO TID 7 days #21 tabs 02/27/22 01/25/23 Previous Rx's Medication Instructions Recorded ciprofloxacin HCl 500 mg tablet 500 mg PO Q12H 7 days #14 tabs 02/27/22 metronidazole 500 mg tablet 500 mg PO TID 7 days #21 tabs 02/27/22 Allergies Allergy/AdvReac Type Severity Reaction Status Date / Time Penicillins Allergy Mild Hives Unverified 02/27/22 09:30 General Stated Complaint: Palpitatns MITUL: 3 Review of Systems Constitutional Constitutional: Reports as per HPI, Denies fever(s), Denies headache(s) and Denies lethargy ENT Ears, Nose, Mouth, and Throat: Denies dizziness and Denies headache(s) Cardiovascular Cardiovascular: Reports as per HPI, Denies dyspnea and Denies dyspnea on exertion Respiratory Respiratory: Reports as per HPI, Denies chest congestion, Denies cough, Denies dyspnea and Denies dyspnea on exertion Gastrointestinal Gastrointestinal: Reports as per HPI, Denies abdominal pain, Denies constipation (decreased ostomy output), Denies nausea and Denies vomiting Genitourinary Genitourinary: Denies system reviewed and no additional complaints, except as documented (denies change in urinary habits) Musculoskeletal Musculoskeletal: Reports as per HPI and Denies back pain Neurologic Neurologic: Reports as per HPI, Denies dizziness and Denies headache(s) PFSH All Active Problems (Updated 01/25/23 @ 12:42 by RIC Valdovinos) Heart palpitations (Acute) PVC's (premature ventricular contractions) (Acute) Colostomy in place (Chronic) Crohn's disease (Chronic) Surgical History (Updated 02/27/22 @ 10:23 by John Watson NP) S/P colectomy Social History Smoking/Tobacco Use Status: Never Smoking risk assessment performed?: Yes Drug use: Never Substance use type: does not use Do you feel safe at home: Yes Do you feel safe in your relationship?: Yes Exam Const General: cooperative, healthy appearing, comfortable, no acute distress, well developed and anxious Nutritional Appearance: average body habitus and well nourished Orientation: alert, awake and oriented x3 HENMT Head: normal to inspection Ears: hearing grossly normal bilaterally Mouth: moist mucous membranes Chest Chest: normal inspection of the chest, normal palpation of entire chest wall and no crepitus Resp Effort & Inspection: normal respiratory effort, able to speak in complete sentences and no respiratory distress Auscultation: clear to auscultation bilaterally, no rales, no rhonchi and no wheezes Cardio Rate: regular rate Rhythm: regular rhythm Heart Sounds: S1 normal and S2 normal GI Inspection: normal to inspection, no edema, non-distended and other (ostomy right side) Palpation: soft, no hepatosplenomegaly, not firm, no guarding, not rigid and nontender Auscultation: normal bowel sounds Skin General skin exam: no rashes or lesions noted Trauma: no lacerations or abrasions Neuro General: patient alert, patient awake and patient oriented x3 Cognition: normal cognition Speech: speech normal Gait: normal gait Extrem General: normal to inspection, capillary refill normal, no pedal edema, no calf tenderness and normal gait Psych Appearance: grossly normal and well kempt Mental Status: mental status grossly normal Speech and Movement: speech and movement normal Course Vital Signs Vital signs: Vital Signs Pulse 80 01/25/23 08:25 Respiratory Rate 20 01/25/23 08:25 Blood Pressure 123/66 01/25/23 08:25 Pulse Oximetry 98 01/25/23 08:25 Pulse 80 01/25/23 08:25 Respiratory Rate 20 01/25/23 08:25 Respiratory Effort Normal, Non-Labored 01/25/23 08:29 Blood Pressure 123/66 01/25/23 08:25 Blood Pressure Position Supine 01/25/23 08:25 Pulse Oximetry 98 01/25/23 08:25 Pain Level 0 01/25/23 08:25
[2023-01-25] MEDS: Lactated Ringers 1,000 ML 1000 ML IV (08:53)
[2023-01-25 08:55] LABS: Abs Immature Grans 0.01 10^3/uL (0.0-0.06); Absolute Basophil Count 0.02 10^3/uL (0.0-0.2); Absolute Eosinophil Count 0.07 10^3/uL (0.0-0.7); Absolute Lymphocyte Count 0.76 10^3/uL (1.2-3.4); Absolute Monocyte Count 0.19 10^3/uL (0.1-0.8); Basophils % 0.5; Eosinophils % 1.9; HGB 12.7 g/dL (13.5-17.5); Immature Grans % 0.3; Lymphocytes % 20.8; MCV 84 fL (80-95); MPV 8.8 fL (8.0-11.0); Monocytes % 5.2; Neutrophils % 71.3; Platelet Count 452 10^3/uL (130-400); RBC 4.88 10^6/uL (4.36-5.78); RDW 15.9 % (11.8-14.1); WBC 3.65 10^3/uL (4.4-10.8)
[2023-01-25 09:21] LABS: ALT 46 U/L (16-63); AST 21 U/L (15-37); Albumin 4.2 g/dL (3.4-5.0); Alkaline Phosphatase 66 U/L (46-116); Anion Gap 8.1 mmol/L (3-11); BUN 5 mg/dL (7-18); Bilirubin, Total 0.7 mg/dL (0.2-1.0); CO2 26.9 mmol/L (21.0-32.0); Chloride 105 mmol/L (98-107); Glucose 96 mg/dL (74-106); Magnesium 1.9 mg/dL (1.8-2.4); Potassium 3.9 mmol/L (3.5-5.1); Sodium 140 mmol/L (136-145); TSH (W/Ref FT4) 2.13 uIU/mL (0.36-3.74); Total Protein 8.8 g/dL (6.4-8.2); Troponin I < 50 ng/L (<or=60)
[2023-01-25 12:10] LABS: Troponin I < 50 ng/L (<or=60)
== END 2023-01-25 12:51 | disposition home or self-care (01) ==
PROVIDERS: Emergency Provider Physician Assistant; PCP Internal Medicine
DX: R00.2 Palpitations (principal); I49.3 Ventricular premature depolarization; Z93.3 Colostomy status
CPT/HCPCS: 80053; 93005; 96360; 96361; 99283; 71046; 83735; 84443; 84484; 85025; 93010

== ENCOUNTER 2023-02-28 16:22 | Emergency (ER) | payer OTHER, SELFPAY ==
[2023-02-28] VITALS (21 sets, daily range): BP systolic 122–134; BP diastolic 73–82; PULSE 76–126; RESP 15–30; TEMP 36.7; O2SAT 91–98
--- NOTE | 2023-02-28 16:52 | ED.GENADUL_ITS ---
Discharge Plan Disposition Specific Acute Inpt Facility: [facility] Discharge Details Chief Complaint: Abd Prob Clinical Impression: Small bowel obstruction, Crohn's disease Primary Care Provider: Nkechi Tolbert ED Provider: John Watson Home Meds and New Rx's Prescriptions: No Action esomeprazole magnesium [Nexium] 40 MG capsule,delayed release(DR/EC) 40 mg PO BID mercaptopurine 50 MG tablet 100 mg PO DAILY Stelara 90 mg/mL Syringe 90 mg SUBCUT .MONTHLY B-12 Compliance 1,000 mcg/mL Kit 1,000 mcg IM .MONTHLY Patient Comments: pt states not taking 02/28/23 ciprofloxacin HCl 500 mg tablet 500 mg PO Q12H 7 Days Qty: 14 0RF Patient Comments: pt states not taking 02/28/23 metronidazole 500 mg tablet 500 mg PO TID 7 Days Qty: 21 0RF Patient Comments: pt states not taking 02/28/23 Medical Decision Making Patient presenting to the emergency department for chief complaint of nausea vomiting and abdominal pain. Has history of severe Crohn's with ileostomy. Starting yesterday he had significant amount of ileostomy output and has had significant vomiting especially with any oral intake. He reports that this is happened about 5 or 6 times in the past when he has had a obstruction. Patient denies fever or chills, does state slight headache but attributes that to low oral intake due to significant vomiting. Patient denies all other symptoms. Physical exam shows tachycardia, normal active to hyperactive bowel sounds in the upper quadrants with hypoactive bowel sounds lower quadrants. Patient has epigastric tenderness and some more tenderness around the ostomy area but ostomy appears normal otherwise. Patient did have significant vomit right when he got to the emergency department vomited almost 500 mL of fluid and states feeling significantly better after that. We will plan on checking labs and plain film x-ray to start given the patient has had multiple CT imaging studies and has had similar symptoms in the past. Pending results will give IV fluids and Reglan. Reviewed patient's labs and he does have slight elevation of lactate at 2.0, CBC is overall nondiagnostic, CMP shows slight hyponatremia, hypokalemia with potassium of 3.1 which we will give IV repletion given patient is not tolerating p.o., anion gap of 14 otherwise nondiagnostic CMP. Lipase is within normal range, urinalysis shows concentration protein and ketones with moderate amount of bilirubin again otherwise unremarkable. Reassessed patient patient has had no further episodes of vomiting. Did receive x-ray imaging and reviewed images along with results which shows a small bowel obstruction. Did speak with Dr. Garcia our general surgeon who stated given patient's complex Crohn's and medical history that he is too complex for care at a critical access hospital. [place] [facility] [place] for his Crohn's disease. Spoke with Dr. Oralia Nagel with GI services. She agreed that patient should be transferred to tertiary care center but stated that their service does not admit and only consults. She did request pending speaking with GI surgery team that we add on an ESR and CRP. Pending speaking with surgery ESR is elevated with result of 25 and CRP also elevated at 1.54. Spoke with Dr. Megan Pino with colorectal surgery [place] [facility] [place]. She did request that we perform CT imaging and place an NG tube pending bed availability. Patient was agreeable to this plan of care. CT imaging was reviewed and does show small bowel obstruction versus ileus. No other emergent findings were noted. NG tube was confirmed with plain film imaging. This documentation was generated using [employer] dictation system, please disregard any oddities of phrase or misspellings. Imaging Data Radiologic Study: Imaging: X-Ray Radiologist's impression: Exam(s) XR ABD FLAT UPRIGHT PA CHEST EXAM: XR ABD FLAT UPRIGHT PA CHEST CLINICAL HISTORY: Abdominal pain, possible obstruction. TECHNIQUE: 2D digital imaging was performed. COMPARISON: CT CT ABDOMEN PELVIS W from 02/27/2022 FINDINGS: 3 views Chest x-ray: Lungs are clear. No pleural effusions. Heart size normal. No mediastinal widening. Abdomen-supine and upright views: Stomach is not distended. However, there are numerous abnormal dilated and air-filled small bowel loops suspicious for small- bowel obstruction pattern. I note and prior CT that this patient had a right- sided ostomy on CT of February 2022. Also cholelithiasis. IMPRESSION: Small-bowel obstruction pattern. No free air. Lungs are clear and there are no pleural effusions. Lab Data Lab results reviewed: Yes I reviewed the patient's lab results. Labs: Laboratory Tests Range/Units 02/28/23 02/28/23 02/28/23 17:01 17:01 17:01 WBC (4.4-10.8) 10^3/uL 6.71 RBC (4.36-5.78) 10^6/uL 5.58 Hgb (13.5-17.5) g/dL 14.7 Hct (40.0-50.0) % 46.1 MCV (80-95) fL 83 MCH (27.0-33.0) pg 26.3 L MCHC (32.0-36.0) % 31.9 L RDW (11.8-14.1) % 17.3 H Plt Count (130-400) 10^3/uL 550 H MPV (8.0-11.0) fL 8.6 Immature Gran % 0.3 Neutrophils % 81.3 Lymphocytes % 11.9 Monocytes % 5.8 Eosinophils % 0.6 Basophils % 0.1 Nucleated RBC % (0.0-0.3) % 0.0 Absolute Neutrophils (1.2-6.7) 10^3/uL 5.45 Absolute Lymphocytes (1.2-3.4) 10^3/uL 0.80 L Absolute Monocytes (0.1-0.8) 10^3/uL 0.39 Absolute Eosinophils (0.0-0.7) 10^3/uL 0.04 Absolute Basophils (0.0-0.2) 10^3/uL 0.01 ESR (0-15) mm/hr VBG Lactate (0.6-1.4) mmol/L 2.0 H Sodium (136-145) mmol/L 135 L Potassium (3.5-5.1) mmol/L 3.1 L Chloride (98-107) mmol/L 98 Carbon Dioxide (21.0-32.0) mmol/L 22.6 Anion Gap (3-11) mmol/L 14.4 H BUN (7-18) mg/dL 3 L Creatinine (0.70-1.30) mg/dL 1.1 Est GFR (CKD-EPI 2020) (mL/min/1.73m2) 88.12 Glucose (74-106) mg/dL 132 H Calcium (8.5-10.1) mg/dL 10.1 Magnesium (1.8-2.4) mg/dL 2.0 Total Bilirubin (0.2-1.0) mg/dL 1.4 H AST (15-37) U/L 18 ALT (16-63) U/L 36 Alkaline Phosphatase (46-116) U/L 87 C-Reactive Protein (0.0-0.3) mg/dL Total Protein (6.4-8.2) g/dL 9.3 H Albumin (3.4-5.0) g/dL 4.3 Lipase (16-77) U/L 20 Urine Color (Yellow) Urine Clarity (Clear) Urine pH (5-8) Ur Specific Howard (1.005-1.025) Urine Protein (Negative) mg/dL Urine Ketones (Negative) mg/dL Urine Blood (Negative) Urine Nitrite (Negative) Urine Bilirubin (Negative) Urine Urobilinogen (Up to 0.2) mg/dL Ur Leukocyte Esterase (Negative) Urine RBC (0-2) HPF Urine WBC (0-5) HPF Ur Epithelial Cells (Negative) HPF Urine Crystals (Negative) HPF Urine Bacteria (Negative) HPF Urine Casts (Negative) LPF Urine Mucus (Negative) Ur Culture Indicated? Urine Glucose (Negative) mg/dL Range/Units 02/28/23 02/28/23 02/28/23 17:01 17:01 17:14 WBC (4.4-10.8) 10^3/uL RBC (4.36-5.78) 10^6/uL Hgb (13.5-17.5) g/dL Hct (40.0-50.0) % MCV (80-95) fL MCH (27.0-33.0) pg MCHC (32.0-36.0) % RDW (11.8-14.1) % Plt Count (130-400) 10^3/uL MPV (8.0-11.0) fL Immature Gran % Neutrophils % Lymphocytes % Monocytes % Eosinophils % Basophils % Nucleated RBC % (0.0-0.3) % Absolute Neutrophils (1.2-6.7) 10^3/uL Absolute Lymphocytes (1.2-3.4) 10^3/uL Absolute Monocytes (0.1-0.8) 10^3/uL Absolute Eosinophils (0.0-0.7) 10^3/uL Absolute Basophils (0.0-0.2) 10^3/uL ESR (0-15) mm/hr 25 H VBG Lactate (0.6-1.4) mmol/L Sodium (136-145) mmol/L Potassium (3.5-5.1) mmol/L Chloride (98-107) mmol/L Carbon Dioxide (21.0-32.0) mmol/L Anion Gap (3-11) mmol/L BUN (7-18) mg/dL Creatinine (0.70-1.30) mg/dL Est GFR (CKD-EPI 2020) (mL/min/1.73m2) Glucose (74-106) mg/dL Calcium (8.5-10.1) mg/dL Magnesium (1.8-2.4) mg/dL Total Bilirubin (0.2-1.0) mg/dL AST (15-37) U/L ALT (16-63) U/L Alkaline Phosphatase (46-116) U/L C-Reactive Protein (0.0-0.3) mg/dL 1.54 H Total Protein (6.4-8.2) g/dL Albumin (3.4-5.0) g/dL Lipase (16-77) U/L Urine Color (Yellow) Yellow Urine Clarity (Clear) Sl Cloudy Urine pH (5-8) 5.5 Ur Specific Howard (1.005-1.025) >= 1.030 H Urine Protein (Negative) mg/dL 30 H Urine Ketones (Negative) mg/dL 40 H Urine Blood (Negative) Negative Urine Nitrite (Negative) Negative Urine Bilirubin (Negative) Moderate H Urine Urobilinogen (Up to 0.2) mg/dL 0.2 Ur Leukocyte Esterase (Negative) Negative Urine RBC (0-2) HPF 0-2 Urine WBC (0-5) HPF 0-2 Ur Epithelial Cells (Negative) HPF Rare Urine Crystals (Negative) HPF Negative Urine Bacteria (Negative) HPF Negative Urine Casts (Negative) LPF 0-2 Hyaline Urine Mucus (Negative) Trace Ur Culture Indicated? No Urine Glucose (Negative) mg/dL Negative HPI General Mode of arrival: ambulatory . Date/Time Provider Initiated Documentation: 02/28/23 16:35 . Limitations to Documentation: no limitations . Information obtained by: patient and RN notes reviewed . History of Present Illness 37 year old M presents to the emergency department with the chief complaint of Abdominal pain, nausea vomiting, described as moderate and similar to prior episodes, and is localized to the abdomen. Patient started experiencing this day(s) (1) and it has been constant. No relieving factors improve symptom(s), No exacerbating factors reported . Patient notes no other symptoms.. Patient did receive the following treatments prior to arrival, none Related Data Home Medications Medication Instructions Recorded Confirmed esomeprazole magnesium 40 mg 40 mg PO BID 08/21/17 02/28/23 capsule,delayed release (Nexium) mercaptopurine 50 mg tablet 100 mg PO DAILY 08/21/17 02/28/23 cyanocobalamin (vitamin B-12) 1,000 mcg IM .MONTHLY 06/29/19 01/25/23 1,000 mcg/mL injection kit (B-12 Compliance) ustekinumab 90 mg/mL subcutaneous 90 mg subcut .MONTHLY 06/29/19 02/28/23 syringe (Stelara) ciprofloxacin HCl 500 mg tablet 500 mg PO Q12H 7 days #14 tabs 02/27/22 01/25/23 metronidazole 500 mg tablet 500 mg PO TID 7 days #21 tabs 02/27/22 01/25/23 Previous Rx's Medication Instructions Recorded ciprofloxacin HCl 500 mg tablet 500 mg PO Q12H 7 days #14 tabs 02/27/22 metronidazole 500 mg tablet 500 mg PO TID 7 days #21 tabs 02/27/22 Allergies Allergy/AdvReac Type Severity Reaction Status Date / Time Penicillins Allergy Mild Hives Unverified 02/28/23 16:31 General Stated Complaint: Abd Prob MITUL: 3 Review of Systems Constitutional Constitutional: Denies chills and Denies fever(s) Cardiovascular Cardiovascular: Denies chest pain and Denies dyspnea Respiratory Respiratory: Denies cough and Denies dyspnea Gastrointestinal Gastrointestinal: Reports as per HPI, Reports abdominal pain, Denies melena, Denies change in bowel habits, Denies constipation, Denies diarrhea, Reports nausea, Reports vomiting and Reports other (Watery ostomy output) Genitourinary Genitourinary: Denies hematuria, Denies difficulty urinating, Denies urinary hesitancy, Denies urinary incontinence and Denies urinary urgency Integumentary/Breasts Skin/Breast: Denies rash PFSH All Active Problems (Updated 02/28/23 @ 20:34 by John Watson NP) Small bowel obstruction (Acute) Colostomy in place (Chronic) Crohn's disease (Chronic) Surgical History S/P colectomy Social History Smoking/Tobacco Use Status: Never Smoking risk assessment performed?: Yes Drug use: Never Substance use type: does not use Do you feel safe at home: Yes Do you feel safe in your relationship?: Yes Exam Const General: cooperative Orientation: alert, awake and oriented x3 Resp Effort & Inspection: normal respiratory effort and able to speak in complete sentences Auscultation: clear to auscultation bilaterally Cardio Rate: tachycardic Rhythm: regular rhythm Heart Sounds: S1 normal and S2 normal GI Palpation: soft, no hepatosplenomegaly, not firm, no guarding, no masses, no pulsatile masses, not rigid, no splenomegaly and tender in the epigastrum, in the LUQ, in the RUQ and Rovsing's sign positive Auscultation: other (Normal active to hyperactive upper quadrants and hypoactive lower quadrants) Back/Spine/Pelvis Back: no CVA tenderness Neuro General: patient alert, patient awake, patient oriented x3, gait normal and moves all extremities Course Vital Signs Vital signs: Vital Signs Temperature 36.7 C 02/28/23 16:27 Pulse 121 H 02/28/23 16:27 Respiratory Rate 18 02/28/23 16:27 Blood Pressure 122/73 02/28/23 16:27 Pulse Oximetry 95 02/28/23 16:27 Temperature 36.7 C 02/28/23 16:27 Temperature Source Oral 02/28/23 16:27 Pulse 121 H 02/28/23 16:27 Respiratory Rate 18 02/28/23 16:27 Blood Pressure 122/73 02/28/23 16:27 Blood Pressure Position Sitting 02/28/23 16:27 Pulse Oximetry 95 02/28/23 16:27 Oxygen Delivery Method Room Air 02/28/23 16:27 Oxygen Flow Rate 0 02/28/23 16:27 Pain Level 4 02/28/23 16:27
[2023-02-28 17:10] LABS: Abs Immature Grans 0.02 10^3/uL (0.0-0.06); Absolute Basophil Count 0.01 10^3/uL (0.0-0.2); Absolute Eosinophil Count 0.04 10^3/uL (0.0-0.7); Absolute Monocyte Count 0.39 10^3/uL (0.1-0.8); Absolute Neutrophil Count 5.45 10^3/uL (1.2-6.7); Basophils % 0.1; Eosinophils % 0.6; HCT 46.1 % (40.0-50.0); HGB 14.7 g/dL (13.5-17.5); Immature Grans % 0.3; Lymphocytes % 11.9; MCH 26.3 pg (27.0-33.0); MCHC 31.9 % (32.0-36.0); MCV 83 fL (80-95); MPV 8.6 fL (8.0-11.0); Monocytes % 5.8; Neutrophils % 81.3; Platelet Count 550 10^3/uL (130-400); RBC 5.58 10^6/uL (4.36-5.78); RDW 17.3 % (11.8-14.1); RDW-SD 51.6 fL; WBC 6.71 10^3/uL (4.4-10.8)
[2023-02-28] MEDS: Metoclopramide 10 MG/2 ML VIAL IVP (17:17)
[2023-02-28 17:21] LABS: Bilirubin Moderate (Negative); Blood Negative (Negative); Clarity Sl Cloudy (Clear); Glucose Negative (Negative); Ketones 40 mg/dL (Negative); Leukocyte Esterase Negative (Negative); Nitrite Negative (Negative); Specific Gravity >= 1.030 (1.005-1.025); Urobilinogen 0.2 mg/dL (Up to 0.2); pH 5.5 (5-8)
[2023-02-28 17:23] LABS: ALT 36 U/L (16-63); AST 18 U/L (15-37); Albumin 4.3 g/dL (3.4-5.0); Alkaline Phosphatase 87 U/L (46-116); Anion Gap 14.4 mmol/L (3-11); BUN 3 mg/dL (7-18); Bilirubin, Total 1.4 mg/dL (0.2-1.0); CO2 22.6 mmol/L (21.0-32.0); CREATININE 1.1 mg/dL (0.70-1.30); Calcium 10.1 mg/dL (8.5-10.1); Chloride 98 mmol/L (98-107); Estimated GFR 88.12 (mL/min/1.73m2); Glucose 132 mg/dL (74-106); Lipase 20 U/L (16-77); Potassium 3.1 mmol/L (3.5-5.1); Sodium 135 mmol/L (136-145); Total Protein 9.3 g/dL (6.4-8.2)
[2023-02-28 17:27] LABS: Bacteria Negative HPF (Negative); C & S Indicated? No; Casts 0-2 Hyaline LPF (Negative); Crystals Negative HPF (Negative); Epithelial Cells Rare HPF (Negative); Mucus Trace (Negative); RBC 0-2 HPF (0-2); WBC 0-2 HPF (0-5)
[2023-02-28] MEDS: Normal Saline 1,000 ML 1000 ML IV (17:37)
--- NOTE | 2023-02-28 17:38 | DI.RAD_ITS ---
Exam(s) XR ABD FLAT UPRIGHT PA CHEST EXAM: XR ABD FLAT UPRIGHT PA CHEST CLINICAL HISTORY: Abdominal pain, possible obstruction. TECHNIQUE: 2D digital imaging was performed. COMPARISON: CT CT ABDOMEN PELVIS W from 02/27/2022 FINDINGS: 3 views Chest x-ray: Lungs are clear. No pleural effusions. Heart size normal. No mediastinal widening. Abdomen-supine and upright views: Stomach is not distended. However, there are numerous abnormal dil ated and air-filled small bowel loops suspicious for small-bowel obstruction pattern. I note and stuart or CT that this patient had a right-sided ostomy on CT of February 2022. Also cholelithiasis. IMPRESSION: Small-bowel obstruction pattern. No free air. Lungs are clear and there are no pleural effusions. DATA REPOSITORY: RADIATION DOSE DELIVERED:
--- NOTE | 2023-02-28 17:51 | DI.VRAD_ITS ---
Addendum created by Jada Velásquez MD on 02/28/2023 5:56:39 PM EDT: THIS REPORT CONTAINS FINDINGS THAT MAY BE CRITICAL TO PATIENT CARE. The findings were verbally communicated via telephone conference with TRISH LOCK at 5:55 PM EDT on 02/28/2023. The findings were acknowledged and understood. Initial report created on 02/28/2023 5:51:23 PM EDT: PROCEDURE INFORMATION: Exam: XR Complete Acute Abdomen Series Including Chest Exam date and time: 02/28/2023 5:25 PM Age: 37 years old Clinical indication: Other: Abdominal pain, possible obstruction TECHNIQUE: Imaging protocol: Radiologic exam. Complete acute abdomen series, including 2 or more views of the abdomen and a single view chest. COMPARISON: CR ABD FLAT UPRIGHT PA CHEST 04/12/2018 22:36 FINDINGS: Lungs: Normal. No consolidation. Pleural spaces: Normal. No pleural effusions. No pneumothorax. Heart/Mediastinum: Normal. No cardiomegaly. Gastrointestinal tract: Distended dilated loops of small bowel consistent with ileus or early obstruction. Small bowel diameter measures 5.2 cm. Air-fluid levels noted in the small bowel on the upright film. Intraperitoneal space: Normal. No free air. Bones/joints: Normal. No acute fracture. Soft tissues: Normal. IMPRESSION: Dilated small bowel loops with air-fluid levels consistent with small bowel obstruction or ileus. Dictated and Authenticated by: Jada Velásquez MD. Ordering:VALENTE Lopez MD
[2023-02-28] MEDS: POTASSIUM CHLORIDE 20 MEQ/100 ML BAG 50 MEQ IVPB (18:31)
[2023-02-28 19:07] LABS: ESR 25 mm/hr (0-15)
[2023-02-28 19:15] LABS: C-Reactive Protein 1.54 mg/dL (0.0-0.3)
--- NOTE | 2023-02-28 19:45 | DI.CT_ITS ---
Exam(s) CT ABDOMEN PELVIS W EXAM: CT ABDOMEN PELVIS W CLINICAL HISTORY: Small bowel obstruction TECHNIQUE: Imaging Protocol: Axial computed tomography images with coronal and sagittal reformatted images were created and reviewed CONTRAST MATERIAL: Intravenous: Omnipaque 350 Contrast volume:100 mL Oral: No COMPARISON: CT CT ABDOMEN PELVIS W from 02/27/2022 CR,XR XR ABD FLAT UPRIGHT PA CHEST from 02/28/2023 FINDINGS: ABDOMEN: Lung Bases: There is atelectasis in the lung bases. Liver: Normal density. No measurable mass. Portal, Superior Mesenteric, and Splenic Veins: Unremarkable. Gallbladder and Biliary Tract: Cholelithiasis. No biliary ductal dilatation. Pancreas: Normal density, no abnormal calcifications or inflammatory process. Spleen: Normal. Adrenals: No masses seen. Kidneys: Normal size, contour and axis. No radiodense stones or obstructive uropathy. There is a 2.8 x 3.4 cm simple cyst in the left kidney. No follow-up is recommended. Abdominal Aorta: Abdominal portion non-dilated. Bowel: The patient has had a total colectomy. There is a right lower quadrant enterostomy. There is bowel wall thickening seen in small bowel loops in the left abdomen extending into the ostomy. The small bowel loops are dilated and fluid-filled. There is no pneumatosis. The dilatation extends to the level of the ostomy. There is a remnant loop of sigmoid and rectum which is decompressed. Peritoneal Cavity: There is inflammatory stranding seen around dilated loops of small bowel in the le ft abdomen. No free air. Lymph Nodes: Within normal limits. Bones: Within normal limits for the patient's age. Soft Tissues: There is a right lower quadrant enterostomy. PELVIS: Bladder: Symmetric distention, no gross wall thickening. Reproductive Organs: Unremarkable as visualized. Lymph Nodes: Within normal limits. Bones: Within normal limits for the patient's age. IMPRESSION: 1. Status post colectomy. 2. Dilated fluid-filled loops of small bowel to the level of the enterostomy. This may represent a s mall-bowel obstruction versus ileus. RADIATION DOSE DELIVERED: 1,153.82mGy.cm Total DLP DATA REPOSITORY: All CT scans at this facility are submitted to the National Radiology Data Registry (NRDR) Dose Index Registry (DIR) with the [employer] [place] [employer] ([employer]). RADIATION OPTIMIZATION: All CT scans at this facility use at least one of these dose optimization te chniques: automated exposure control; mA and/or kV adjustment per patient size (includes targeted exa ms where dose is matched to clinical indication); or iterative reconstruction.
[2023-02-28] MEDS: Normal Saline Flush 10 ML SYR IVP (20:09)
[2023-02-28] MEDS: Omnipaque 350 MG/ML 100 ML BTL IJ (20:09)
[2023-02-28] MEDS: Normal Saline - Diluent 50 ML VIAL IJ (20:10)
--- NOTE | 2023-02-28 21:04 | DI.VRAD_ITS ---
PROCEDURE INFORMATION: Exam: CT Abdomen And Pelvis With Contrast Exam date and time: 02/28/2023 8:27 PM Age: 37 years old Clinical indication: Abdominal pain; Generalized; Prior surgery; Surgery date: 6+ months; Surgery type: Iliostomy; Patient HX: Sbo TECHNIQUE: Imaging protocol: Computed tomography of the abdomen and pelvis with contrast. Radiation optimization: All CT scans at this facility use at least one of these dose optimization techniques: automated exposure control; mA and/or kV adjustment per patient size (includes targeted exams where dose is matched to clinical indication); or iterative reconstruction. Contrast material: OMNIPAQUE 350; Contrast volume: 100 ml; Contrast route: INTRAVENOUS (IV); COMPARISON: CT ABDOMEN PELVIS W 02/27/2022 10:57 AM FINDINGS: Lungs: The visualized lung bases are clear. Liver: Normal. No mass. Gallbladder and bile ducts: 2.5 cm calcified gallstone within the gallbladder. No gallbladder wall thickening or pericholecystic fluid. Pancreas: Normal. No ductal dilation. Spleen: Normal. No splenomegaly. Adrenal glands: Normal. No mass. Kidneys and ureters: 3.4 cm simple cyst in the midpole of the left kidney. No other renal abnormalities. Stomach and bowel: Status post colectomy. Remnant of the sigmoid and rectum are decompressed. Right lower quadrant ileostomy is again noted. There are multiple dilated fluid-filled loops of small bowel throughout the abdomen measuring up to 4 cm. The dilatation extends to the opening of the ileostomy. No pneumatosis. Appendix: No evidence of appendicitis. Intraperitoneal space: No evidence of free fluid or free air within the abdomen and pelvis. Vasculature: Unremarkable. No abdominal aortic aneurysm. Lymph nodes: Unremarkable. No enlarged lymph nodes. Urinary bladder: Unremarkable as visualized. Reproductive: Unremarkable as visualized. Bones/joints: No significant abnormalities Soft tissues: Unremarkable. IMPRESSION: 1. Status post colectomy with right lower quadrant ileostomy. The small bowel is dilated throughout and potentially there is an adhesion at the opening of the ileostomy causing mechanical small-bowel obstruction versus an ileus. 2. Cholelithiasis. 3. Left simple renal cyst Dictated and Authenticated by: Joe Jane MD. Ordering:VALENTE Lopez MD
--- NOTE | 2023-02-28 21:13 | DI.RAD_ITS ---
Exam(s) XR PORTABLE CHEST AP POST LINE EXAM: XR PORTABLE CHEST AP POST LINE CLINICAL HISTORY: NG tube confirmation placement. TECHNIQUE: 2D digital imaging was performed. COMPARISON: CR XR CHEST 2V PA LATERAL from 01/25/2023 FINDINGS: Single AP portable view. There has been interval placement of an NG tube. Distal tip is in stomach but possibly just beyond t he GE junction difficult to assess as the field of view here of the stomach is limited. Heart size normal. Mediastinum is not widened. Lungs are clear. No infiltrates nor obvious pleural effusions. IMPRESSION: No acute pulmonary findings on this single AP portable view of the chest. NG tube is in the stomach just distal to the GE junction. Difficult to assess accurately because of the field of view here. If clinically indicated additional abdominal image can be performed. DATA REPOSITORY: RADIATION DOSE DELIVERED:
--- NOTE | 2023-02-28 21:24 | DI.VRAD_ITS ---
PROCEDURE INFORMATION: Exam: XR Chest Exam date and time: 02/28/2023 9:08 PM Age: 37 years old Clinical indication: Other: Ng tube confirmation placement; Prior surgery; Surgery date: 6+ months; Surgery type: Ileostomy TECHNIQUE: Imaging protocol: Radiologic exam of the chest. Views: 1 view. COMPARISON: CR XR ABD FLAT UPRIGHT PA CHEST 02/28/2023 5:25 PM FINDINGS: Tubes, catheters and devices: Interval placement of nasogastric tube. The tip is within the stomach. The proximal port is difficult to visualized. Lungs: No consolidation. No Mass Pleural spaces: No pleural effusion. No pneumothorax. Heart/Mediastinum: Unremarkable Bones/joints: No significant abnormality IMPRESSION: Interval placement of nasogastric tube as described Dictated and Authenticated by: Joe Jane MD. Ordering:VALENTE Lopez MD
== END 2023-02-28 21:20 | disposition other institution (70) ==
LOC: ER 16:51
PROVIDERS: Emergency Provider Nurse Practitioner Family; PCP Internal Medicine
DX: R11.2 Nausea with vomiting, unspecified (principal); R10.30 Lower abdominal pain, unspecified; K56.609 Unspecified intestinal obstruction, unspecified as to partial versus complete obstruction; E87.1 Hypo-osmolality and hyponatremia; E87.6 Hypokalemia; K80.20 Calculus of gallbladder without cholecystitis without obstruction; K50.10 Crohn's disease of large intestine without complications; Z93.2 Ileostomy status
CPT/HCPCS: 71045; 80053; 83690; 85652; 96361; 96365; 96375; 99285; 74022; 74177; 81003; 81015; 83605; 83735; 85025; 86140; 99284; J2765; J3480; J3490

== ENCOUNTER 2025-05-04 14:58 | Outpatient (CLI) | payer BC, SELFPAY ==
--- NOTE | 2025-05-04 12:57 | DI.RAD_ITS ---
Exam(s) XR LUMBAR SPINE COMPLETE EXAM: XR LUMBAR SPINE COMPLETE CLINICAL HISTORY: evaluate pathology,lumbar pain, m54.50. TECHNIQUE: 2D digital imaging was performed. Five views. COMPARISON: No exams were available for comparison FINDINGS: BONES: No fracture or destructive lesion. Vertebral body heights are maintained. No facet hypertrophy identified . DISKS: Intervertebral disc spaces are maintained. ALIGNMENT: Lumbar spinal alignment is within normal limits. SOFT TISSUE: Normal. IMPRESSION: Unremarkable radiographs of the lumbar spine. DATA REPOSITORY: RADIATION DOSE DELIVERED:
== END 2025-05-04 15:18 ==
PROVIDERS: PCP Internal Medicine; Visit Provider Nurse Practitioner Family
DX: M54.50 Low back pain, unspecified (principal)
CPT/HCPCS: 72110